=== PATIENT | female | born 1985 | race Caucasian/White ===

== ENCOUNTER → 2018-09-14 | Emergency (ER) | payer MEDICAID ==
[~2018-09-14] VITALS: Ht 154.9 cm; Wt 56.8 kg
[~2018-09-14] MED LIST: LORazepam 0.5 MG tablet PO PRN; LORazepam 1 MG tablet PO ONE; NO HOME MEDS; lactobacillus rhamnosus 10,000 MMU CELLS/CAPSULE PO SCH; lithium carbonate 150mg capsule PO SCH; lurasidone 20mg tablet PO SCH; nicotine 14mg patch - 24hr TD SCH
[2018-09-14 23:41] LABS: BASOPHILS % (AUTO) 0.6 % (0-1); EOSINOPHILS # (AUTO) 0.2 X10'3 (0-0.9); HEMATOCRIT 41.2 % (35.0-45.0); HEMOGLOBIN 14.2 g/dl (12.0-16.0); LYMPHOCYTES # (AUTO) 2.3 X10'3 (1.1-4.8); LYMPHOCYTES % (AUTO) 28.5 % (21-51); MEAN CORPUSCULAR HEMOGLOBIN 31.8 PG (27.0-31.0); MEAN CORPUSCULAR HGB CONC 34.4 g/dL (33.0-36.5); MEAN CORPUSCULAR VOLUME 92.5 FL (78-98); MEAN PLATELET VOLUME 7.7 FL (7.4-10.4); MONOCYTES # (AUTO) 0.7 X10'3 (0-0.9); MONOCYTES % (AUTO) 8.6 % (2-12); NEUTROPHILS # (AUTO) 4.9 X10'3 (1.8-7.7); NEUTROPHILS % (AUTO) 60.3 % (42-75); PLATELET COUNT 310 X10'3 (140-440); RED BLOOD COUNT 4.46 X10'6 (4.20-5.60); RED CELL DISTRIBUTION WIDTH 12.6 % (11.5-14.5); WHITE BLOOD COUNT 8.1 X10'3 (4.5-11.0)
[2018-09-14 23:49] LABS: URINE HCG NEGATIVE (NEG)
[2018-09-14 23:54] LABS: CLARITY,URINE SLIGHTLY CLOUDY (Clear); COLOR,URINE YELLOW (Yellow); GLUCOSE, URINE NEGATIVE (Neg); KETONES,URINE NEGATIVE (Neg); LEUKOCYTE ESTERASE ,URINE NEGATIVE (Neg); NITRITES, URINE POSITIVE (Neg); OCCULT BLOOD,URINE SMALL (Neg); PH,URINE 6.5 (4.8-8.0); PROTEIN,URINE NEGATIVE (Neg); UROBILINOGEN,URINE 0.2 E.U/dL (0.2-1.0)
[2018-09-14 23:54] LABS: ALANINE AMINOTRANSFERASE 24 U/L (12-78); ALBUMIN 3.8 G/DL (3.4-5.0); ALBUMIN/GLOBULIN RATIO 1.1 (1.1-1.5); ALKALINE PHOSPHATASE 88 IU/L (46-116); ANION GAP 7 (8-16); ASPARTATE AMINO TRANSFERASE 19 U/L (10-37); BILIRUBIN,TOTAL 0.1 MG/DL (0.1-1.0); BLOOD UREA NITROGEN 15 MG/DL (7-18); BUN/CREATININE RATIO 23.1 (6.6-38.0); CALCIUM 8.9 MG/DL (8.5-10.1); CHLORIDE 105 MMOL/L (99-107); CREATININE 0.65 MG/DL (0.40-0.90); GLUCOSE 112 MG/DL (70-104); POTASSIUM 4.2 MMOL/L (3.5-5.1); SODIUM 140 MMOL/L (135-145); TOTAL CARBON DIOXIDE 28.3 MMOL/L (24-32); TOTAL PROTEIN 7.3 G/DL (6.4-8.2); eGFR > 90 ML/MIN
[2018-09-14 23:55] LABS: UA COLLECTION TYPE CLN CATCH MIDSTREAM
[2018-09-14 23:59] LABS: BACTERIA,URINE 4+ /HPF (Neg); RBC,URINE 0-2 /HPF (0-2); SQUAMOUS EPITHELIAL CELL,UR MANY /LPF (FEW)
[2018-09-15] LABS: MUCUS STRANDS FEW /LPF (Neg); URINE AMPHETAMINE SCREEN NEGATIVE (Neg); URINE BARBITUATE SCREEN NEGATIVE (Neg); URINE BENZODIAZEPINES SCREEN NEGATIVE (Neg); URINE CANNABINOID SCREEN NEGATIVE (Neg); URINE COCAINE SCREEN NEGATIVE (Neg); URINE METHADONE SCREEN NEGATIVE (Neg); URINE OPIATE SCREEN NEGATIVE (Neg); URINE PHENCYCLIDINE SCREEN NEGATIVE (Neg); WBC,URINE 0-4 /HPF (0-4)
[2018-09-15 00:05] LABS: ETHANOL < 0.010 GM/DL (0.0-0.010)
[2018-09-15] MEDS: sulfamethoxazole/trimethoprim DS (800/160mg) tablet PO SCH ×3 (00:22→19:15)
--- NOTE | 2018-09-15 07:01 | NUR ---
REPORT RECEIVED, CARE ASSUMED OF PT SLEEPING ON SIDE IN NO NOTED DISTRESS
--- NOTE | 2018-09-15 09:52 | NUR ---
PT REMAINS ASLEEP, CHANGING POSITIONS NEEDED. REGISTRATION CALLED, MOTHER HERE TO VISIT, WAS TOLD PT IS SLEEPING, THAT SHE IS COMFORTABLE AND THERE HAS BEEN NO ISSUES SINCE ARRIVAL TO THE UNIT.
--- NOTE | 2018-09-15 11:24 | NUR ---
PT IS SLEEPING, NO SIGNS OF DISTRESS.
--- NOTE | 2018-09-15 12:08 | NUR ---
Spoke with Dr. Reddy regarding patient request for a nicotine patch, patient smokes approx. [address] Reddy gave TOVRB for nicotine patch 14 mg TD daily scheduled.
--- NOTE | 2018-09-15 13:59 | NUR ---
pt is being seen by PA from behavioral health right now.
--- NOTE | 2018-09-15 15:38 | NUR ---
patient sleeping on her right side; rr even and unlabored
--- NOTE | 2018-09-15 17:45 | NUR ---
pt is having a consult with ernesto with [facility].
[2018-09-15 18:06] VITALS: BP 115/59
--- NOTE | 2018-09-15 20:35 | NUR ---
pt was given ativan for anxiety, is now sleeping. no s/s of distress, rr wnl.
== END ==
LOC: ER 23:09
DX: F32.9 Major depressive disorder, single episode, unspecified (principal); N39.0 Urinary tract infection, site not specified; F41.9 Anxiety disorder, unspecified; F17.200 Nicotine dependence, unspecified, uncomplicated; Z56.0 Unemployment, unspecified; Z88.1 Allergy status to other antibiotic agents
CPT/HCPCS: 36415; 80053; 80305; 80320; 81001; 81025; 84443; 85025; 99285

== ENCOUNTER 2018-09-15 21:40 | Inpatient (IN) | payer MEDICAID ==
[~2018-09-15] VITALS: Ht 154.9 cm; Wt 61.5 kg
[2018-09-15] MEDS ORDERED: acetaminophen 325mg tablet PO PRN ×2 (23:04→23:05)
[2018-09-15] MEDS ORDERED: mag hydrox/Alum hydrox/simeth 30ml oral suspension PO PRN (23:05)
[2018-09-15] MEDS ORDERED: magnesium hydroxide 30ml (MOM) UD suspension PO PRN (23:05)
[2018-09-15] MEDS ORDERED: LORazepam 0.5 MG tablet PO PRN (23:15)
[2018-09-15 23:30] VITALS: BP 117/55
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
[2018-09-16 07:32] VITALS: BP 90/44
[2018-09-16 07:51] LABS: HEMOGLOBIN A1C 5.1 % (4.5-6.2)
[2018-09-16 07:57] LABS: CHOL/HDL RATIO 2.9 (0.00-4.99); CHOLESTEROL 141 MG/DL (0-200); HDL CHOLESTEROL 49 MG/DL (35-60); LDL CHOLESTEROL 85 MG/DL (50-100); TRIGLYCERIDES 41 MG/DL (20-135)
[2018-09-16] MEDS: lactobacillus rhamnosus 10,000 MMU CELLS/CAPSULE PO SCH ×2 (08:00→20:54)
[2018-09-16] MEDS: sulfamethoxazole/trimethoprim DS (800/160mg) tablet PO SCH ×2 (08:00→20:54)
[2018-09-16] MEDS ORDERED: tuberculin, purif. prot. deriv. 5 units/0.1ml ID ONE (10:00)
[2018-09-16] MEDS ORDERED: NO HOME MEDS (10:44)
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
[2018-09-16 20:00] VITALS: BP 112/62
[2018-09-16] MEDS: lithium carbonate 150mg capsule PO SCH (20:55)
[2018-09-16 21:23] VITALS: BP 132/60
[2018-09-16] MEDS ORDERED: diphenhydrAMINE 25mg capsule PO PRN (21:30)
--- NOTE | 2018-09-16 22:38 | NUR ---
Nursing Note: At approximately 2114, pt. c/o dry cough approximately 30 min. after taking first-dose of ordered [place] 600mg. V/S wnl, lung sounds clear bilaterally, and pt. denies any itching/rash. Dr. Jung notified and obtained new order for Benadryl 25mg, PRN Q6. Pt. reported effectiveness, will continue to monitor.
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
[2018-09-17 08:00] VITALS: BP 107/45
[2018-09-17] MEDS: lactobacillus rhamnosus 10,000 MMU CELLS/CAPSULE PO SCH ×2 (08:02→20:36)
[2018-09-17] MEDS: sulfamethoxazole/trimethoprim DS (800/160mg) tablet PO SCH ×2 (08:02→20:36)
[2018-09-17] MEDS: nicotine 21mg patch - 24 hr TD SCH (08:03)
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
--- NOTE | 2018-09-17 13:20 | NUR ---
DISCHARGE PLANNING: Phoned Elena at [facility] to confirm pt's children are receiving services and to update that pt is requesting help with parenting/ Triple-[facility]. Elena confirmed pt's children have recently begun services w/ agency (due to children's confidentiality she can not disclose name of agency) but they due have wrap services and she will check w/ agency to see if they are providing parenting assistance/educating or notify pt is requesting. Pt may call Elena directly for [facility] if she does not feel she is getting what she needs. Agreed this hand sign writer will also refer pt to [facility] for additional parenting education and resources. Kerry Godoy, VALDEZW
[2018-09-17 20:00] VITALS: BP 114/71
--- NOTE | 2018-09-17 20:00 | NUR ---
Nursing Note: BEV Knight administer 600mg of [place] at HS per order. It is believed that coughing episode last night was unrelated.
[2018-09-17] MEDS: lithium carbonate 150mg capsule PO SCH (20:37)
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
[2018-09-18 08:00] VITALS: BP 95/46
[2018-09-18] MEDS: lactobacillus rhamnosus 10,000 MMU CELLS/CAPSULE PO SCH (08:15)
[2018-09-18] MEDS: sulfamethoxazole/trimethoprim DS (800/160mg) tablet PO SCH (08:15)
[2018-09-18] MEDS: nicotine 21mg patch - 24 hr TD SCH (08:15)
[2018-09-18] MEDS ORDERED: LITH150C8 PO (11:41)
[2018-09-18] MEDS ORDERED: LURA20TA PO (11:41)
[2018-09-18] MEDS ORDERED: BACDS PO (11:41)
--- NOTE | 2018-09-18 13:20 | NUR ---
DISCHARGE NOTE The patient was discharged to home. Her mother was waiting for her in the lobby. She denied suicidal thoughts and stated she was "ready to go home." She was escorted to the lobby with all belongings, instructions and medications by ELVIN Ruiz and left the unit at 1320.
== END 2018-09-18 13:15 | disposition home or self-care (01) | DRG 753 ==
LOC: ADULT MH 21:40
PROVIDERS: ADMIT Psychiatry & Neurology Psychiatry; ATTEND Psychiatry & Neurology Psychiatry
DX: F31.4 Bipolar disorder, current episode depressed, severe, without psychotic features (principal); R45.851 Suicidal ideations; R82.71 Bacteriuria; N39.0 Urinary tract infection, site not specified; F17.200 Nicotine dependence, unspecified, uncomplicated; Z88.0 Allergy status to penicillin; Z88.1 Allergy status to other antibiotic agents; Z79.899 Other long term (current) drug therapy; Z83.3 Family history of diabetes mellitus; Z91.5 Personal history of self-harm; Z81.8 Family history of other mental and behavioral disorders; Z97.5 Presence of (intrauterine) contraceptive device; Z56.0 Unemployment, unspecified; Z59.0 Homelessness
CPT/HCPCS: 36415; 80061; 83036; 87070; Q0163

== ENCOUNTER 2018-10-17 04:56 | Emergency (ER) | payer MEDICAID ==
[~2018-10-17] VITALS: Ht 154.9 cm; Wt 59.1 kg
[~2018-10-17 04:56] MED LIST changes: +BACDS PO; +LITH150C8 PO; -LORazepam 0.5 MG tablet PO PRN; -LORazepam 1 MG tablet PO ONE; +LURA20TA PO; -lactobacillus rhamnosus 10,000 MMU CELLS/CAPSULE PO SCH; -lithium carbonate 150mg capsule PO SCH; -lurasidone 20mg tablet PO SCH; -nicotine 14mg patch - 24hr TD SCH
[2018-10-17 05:30] LABS: BASOPHILS # (AUTO) 0.1 X10'3 (0-0.2); BASOPHILS % (AUTO) 0.6 % (0-1); EOSINOPHILS # (AUTO) 0.3 X10'3 (0-0.9); EOSINOPHILS % (AUTO) 2.3 % (0-6); HEMATOCRIT 43.4 % (35.0-45.0); HEMOGLOBIN 14.7 g/dl (12.0-16.0); LYMPHOCYTES # (AUTO) 3.1 X10'3 (1.1-4.8); LYMPHOCYTES % (AUTO) 23.7 % (21-51); MEAN CORPUSCULAR HEMOGLOBIN 31.4 PG (27.0-31.0); MEAN CORPUSCULAR HGB CONC 33.9 g/dL (33.0-36.5); MEAN CORPUSCULAR VOLUME 92.8 FL (78-98); MONOCYTES # (AUTO) 1.1 X10'3 (0-0.9); MONOCYTES % (AUTO) 8.2 % (2-12); NEUTROPHILS # (AUTO) 8.6 X10'3 (1.8-7.7); NEUTROPHILS % (AUTO) 65.2 % (42-75); PLATELET COUNT 311 X10'3 (140-440); RED BLOOD COUNT 4.68 X10'6 (4.20-5.60); RED CELL DISTRIBUTION WIDTH 13.1 % (11.5-14.5); WHITE BLOOD COUNT 13.3 X10'3 (4.5-11.0)
[2018-10-17 05:38] LABS: ALANINE AMINOTRANSFERASE 27 U/L (12-78); ALBUMIN 3.8 G/DL (3.4-5.0); ALBUMIN/GLOBULIN RATIO 1.1 (1.1-1.5); ALKALINE PHOSPHATASE 87 IU/L (46-116); ANION GAP 8 (8-16); ASPARTATE AMINO TRANSFERASE 17 U/L (10-37); BILIRUBIN,TOTAL 0.2 MG/DL (0.1-1.0); BLOOD UREA NITROGEN 17 MG/DL (7-18); BUN/CREATININE RATIO 25.8 (6.6-38.0); CHLORIDE 106 MMOL/L (99-107); CREATININE 0.66 MG/DL (0.40-0.90); ETHANOL < 0.010 GM/DL (0.0-0.010); GLUCOSE 100 MG/DL (70-104); POTASSIUM 3.9 MMOL/L (3.5-5.1); SODIUM 137 MMOL/L (135-145); TOTAL CARBON DIOXIDE 23.4 MMOL/L (24-32); TOTAL PROTEIN 7.2 G/DL (6.4-8.2); eGFR > 90 ML/MIN
[2018-10-17 05:43] LABS: URINE HCG NEGATIVE (NEG)
[2018-10-17 05:45] LABS: CLARITY,URINE SLIGHTLY CLOUDY (Clear); COLOR,URINE YELLOW (Yellow); GLUCOSE, URINE NEGATIVE (Neg); KETONES,URINE 15 mg/dl (Neg); LEUKOCYTE ESTERASE ,URINE MODERATE (Neg); NITRITES, URINE NEGATIVE (Neg); OCCULT BLOOD,URINE SMALL (Neg); PROTEIN,URINE NEGATIVE (Neg); UROBILINOGEN,URINE 0.2 E.U/dL (0.2-1.0)
[2018-10-17 05:52] LABS: UA COLLECTION TYPE CLN CATCH MIDSTREAM
[2018-10-17 05:53] LABS: BACTERIA,URINE FEW /HPF (Neg); SQUAMOUS EPITHELIAL CELL,UR FEW /LPF (FEW); WBC,URINE 20-30 /HPF (0-4)
[2018-10-17 06:10] LABS: URINE AMPHETAMINE SCREEN NEGATIVE (Neg); URINE BARBITUATE SCREEN NEGATIVE (Neg); URINE BENZODIAZEPINES SCREEN NEGATIVE (Neg); URINE CANNABINOID SCREEN NEGATIVE (Neg); URINE COCAINE SCREEN NEGATIVE (Neg); URINE METHADONE SCREEN NEGATIVE (Neg); URINE OPIATE SCREEN NEGATIVE (Neg); URINE PHENCYCLIDINE SCREEN NEGATIVE (Neg)
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
--- NOTE | 2018-10-17 07:18 | NUR ---
PATIENT TRANSFERRED TO BED 22,REPORT CALLED TO LILLY CA.
--- NOTE | 2018-10-17 09:38 | NUR ---
Nursing Note: Pt laying on L side, ey es closed, no S&S of distress, respirations even and unlabored, will continue to monitor.
--- NOTE | 2018-10-17 10:15 | NUR ---
Pt brought over this morning from ER and patient has been sleeping. Pt. awake now and wants to know when she can be released. Pt. states that she was suicidal 3 weeks ago and was admitted to [facility]. She took meds while she was inpatient, but did not take medications prescribed for aftercare. Pt. states that she was going to counselling twice weekly, but now once weekly. Pt. states that she has four children and lives in a trailer with them. Pt. adamantly denies SI - no plan. 5150 states that she was driving and pulled over and stated that she wanted to slit her wrists, with razor blades in purse. Pt. states the razor blades were to cut her moms ceiling earlier in the day. Pt's affect is constricted. Facial expression is angry. Behavior has been calm. Explained that she would be seen by [facility] and they will decide whether to keep her or not. Pt. requesting nicotine patch.
--- NOTE | 2018-10-17 11:21 | NUR ---
Greer ramires in [facility] - 10/17/18 at 1122 by REINA Patient sleeping, no S&S of distress.
--- NOTE | 2018-10-17 11:22 | NUR ---
Pt. has been talking on phone to family this a.m. States family are coming to visit.
--- NOTE | 2018-10-17 12:00 | NUR ---
Straight cathed patient and urine sent to lab. Two friends at bedside now.
[2018-10-17] MEDS ORDERED: nicotine 21mg patch - 24 hr TD SCH (12:10)
--- NOTE | 2018-10-17 12:32 | NUR ---
PER PT OK TO SHARE MEDICAL INFORMATION WITH EX BOYFRIEND ADRIÁN, CONTACT NUMBER [phone]
--- NOTE | 2018-10-17 12:33 | NUR ---
put elopement band #29 on patient.
[2018-10-17 13:38] LABS: CLARITY,URINE CLEAR (Clear); COLOR,URINE STRAW (Yellow); GLUCOSE, URINE NEGATIVE (Neg); KETONES,URINE NEGATIVE (Neg); LEUKOCYTE ESTERASE ,URINE MODERATE (Neg); NITRITES, URINE NEGATIVE (Neg); OCCULT BLOOD,URINE NEGATIVE (Neg); PROTEIN,URINE NEGATIVE (Neg); UROBILINOGEN,URINE 0.2 E.U/dL (0.2-1.0)
[2018-10-17 13:44] LABS: UA COLLECTION TYPE STRAIGHT CATH
[2018-10-17 13:48] LABS: RBC,URINE NONE SEEN /HPF (0-2)
[2018-10-17 13:49] LABS: BACTERIA,URINE FEW /HPF (Neg); MUCUS STRANDS NONE SEEN /LPF (Neg); SQUAMOUS EPITHELIAL CELL,UR FEW /LPF (FEW)
--- NOTE | 2018-10-17 14:47 | NUR ---
Patient has been released from 5150 by NATHAN Leonard. Patient making arrangements for ride home. Patient has had visitors all day, laughing, talking. Pt. wilianies SI.
[2018-10-17 14:57] VITALS: BP 111/75
[2018-10-18] MEDS ORDERED: nicotine 21mg patch - 24 hr TD SCH (08:00)
== END 2018-10-17 14:50 | disposition home or self-care (01) ==
LOC: ER 04:56
DX: F32.9 Major depressive disorder, single episode, unspecified (principal); F41.9 Anxiety disorder, unspecified; F17.210 Nicotine dependence, cigarettes, uncomplicated; Z88.0 Allergy status to penicillin; Z88.1 Allergy status to other antibiotic agents; Z88.8 Allergy status to other drugs, medicaments and biological substances; Z56.0 Unemployment, unspecified
CPT/HCPCS: 36415; 80053; 80305; 80320; 81001; 81025; 85025; 87088; 99285